=== PATIENT | female | born 1970 | race Caucasian/White ===

== ENCOUNTER → 2016-09-10 | Outpatient (CLI) | payer OTHER | LOC: OD 16:11 | PROVIDERS: ATTEND Internal Medicine | DX: M17.11 Unilateral primary osteoarthritis, right knee (principal) ==

== ENCOUNTER → 2016-09-24 | Day surgery (SDC) | payer OTHER | LOC: RAD 12:18 | PROVIDERS: ATTEND Physician Assistant | PROC: BP09ZZZ Plain Radiography of Left Shoulder (ICD-10-PCS; principal; 2016-09-24) | DX: S43.432A Superior glenoid labrum lesion of left shoulder, initial encounter (principal); X58.XXXA Exposure to other specified factors, initial encounter | CPT/HCPCS: 73222; 73040; 77002; A9576 ==

== ENCOUNTER 2016-12-04 05:44 | Emergency (ER) | payer OTHER ==
[2016-12-04] MEDS ORDERED: NORMAL SALINE 1000 ML 1,000 ML IV ONE (06:57)
[2016-12-04] MEDS ORDERED: CLINDAMYCIN 600 MG/D5W RTU 50 ML IV ONE (06:58)
[2016-12-04 07:56] LABS: ABSOLUTE BASOPHILS # (AUTO) 0.1 10^3/uL (0.0-0.2); ABSOLUTE EOSINOPHILS # (AUTO) 0.1 10^3/uL (0.0-0.6); ABSOLUTE LYMPHOCYTES (AUTO) 1.7 10^3/uL (0.5-4.7); ABSOLUTE MONOCYTES (AUTO) 1.1 10^3/uL (0.1-1.4); ABSOLUTE NEUT (AUTO) 13.9 10^3/uL (1.7-8.2); BASOPHILS % (AUTO) 0.3 % (0-2); EOSINOPHILS % (AUTO) 0.8 % (0-6); HEMATOCRIT 30.7 % (36.0-47.0); HEMOGLOBIN 9.6 g/dL (12.0-15.5); HGB HCT DIFFERENCE -1.9; MEAN CORPUSCULAR HEMOGLOBIN 23.3 pg (27.0-33.4); MEAN CORPUSCULAR HGB CONC 31.1 g/dL (32.0-36.0); MEAN CORPUSCULAR VOLUME 75 fl (80-97); MONOCYTES % (AUTO) 6.4 % (3-13); RED CELL DISTRIBUTION WIDTH 18.2 % (11.5-14.0); SEGMENTED NEUTROPHILS % (AUTO) 82.5 % (42-78); WHITE BLOOD COUNT 16.9 10^3/uL (4.0-10.5)
[2016-12-04 08:15] LABS: ALANINE AMINOTRANSFERASE 24 U/L (9-52); ALBUMIN 4.4 g/dL (3.5-5.0); ALKALINE PHOSPHATASE 110 U/L (38-126); ANION GAP 12 (5-19); ASPARTATE AMINO TRANSFERASE 23 U/L (14-36); BILIRUBIN,DIRECT 0.4 mg/dL (0.0-0.4); BILIRUBIN,TOTAL 0.6 mg/dL (0.2-1.3); BLOOD UREA NITROGEN 8 mg/dL (7-20); CALCIUM 9.5 mg/dL (8.4-10.2); CARBON DIOXIDE 24 mmol/L (22-30); CHLORIDE 104 mmol/L (98-107); CREATININE RESULT 0.69 mg/dL (0.52-1.25); GLUCOSE 132 mg/dL (75-110); POTASSIUM 3.8 mmol/L (3.6-5.0); SODIUM 140.1 mmol/L (137-145); TOTAL PROTEIN 8.3 g/dL (6.3-8.2)
[2016-12-04 08:17] LABS: ALCOHOL < 10 mg/dL (NONE DETECTED)
[2016-12-04 08:47] LABS: APPEARANCE,URINE CLEAR; BILIRUBIN,URINE NEGATIVE (NEGATIVE); GLUCOSE, URINE NEGATIVE (NEGATIVE); KETONES,URINE NEGATIVE (NEGATIVE); LEUKOCYTE ESTERASE,URINE NEGATIVE (NEGATIVE); NITRITE,URINE NEGATIVE (NEGATIVE); PROTEIN,URINE NEGATIVE (NEGATIVE); RBC,URINE 0-1 /HPF; URINE SPECIFIC GRAVITY 1.007; UROBILINOGEN,URINE NEGATIVE mg/dL (<2.0); WBC,URINE NONE SEEN /HPF
[2016-12-04 08:55] LABS: URINE BARBITURATES SCREEN NEGATIVE; URINE METHADONE SCREEN NEGATIVE; URINE OPIATES LOW NEGATIVE; URINE PHENCYCLIDINE SCREEN NEGATIVE
[2016-12-04 09:14] LABS: CHLAM PCR NOT DETECTED (NOT DETECT)
[2016-12-04] MEDS ORDERED: ACETAMINOPHEN 325 MG TABLET PO ONE (09:17)
--- NOTE | 2016-12-04 09:47 | ER Document Report ---
ED General - General Chief Complaint: Wound Infection Stated Complaint: LOWER ABDOMINAL ABSCESS/PSYCH EVAL Time Seen by Provider: 12/04/16 06:38 TRAVEL OUTSIDE OF THE [place] IN LAST 30 DAYS: No - HPI Patient complains to provider of: Wound infection Notes: Patient is coming in for evaluation of wound infection. Patient states recently seen by functional manager and started on Bactrim for cellulitis or wound infection states a culture was done that time patient states she is taking 1 dose of Bactrim however came in for further evaluation. Patient also is requesting psychiatric evaluation. Patient states that she is having periods where she is blacking out not remembering events however her girlfriend at bedside states that the patient has something black going in and out of her vagina states that a few months ago the patient advised to multiple people that she cannot see into the house and that she makes recordings of the people at nighttime having "angry sex" patient states that these recordings are on the phone. Patient states that these people cannot be seen nor any obviously seen. Patient is requesting of vaginal examination. - Related Data Allergies/Adverse Reactions: No Known Allergies Allergy (Unverified 12/04/16 05:52) Past Medical History - Social History Smoking Status: Unknown if Ever Smoked Family History: Reviewed & Not Pertinent Patient has suicidal ideation: No Patient has homicidal ideation: No Renal/ Medical History: Denies: Hx Peritoneal Dialysis Surgical Hx: Negative Review of Systems - Review of Systems Constitutional: No symptoms reported EENT: No symptoms reported Cardiovascular: No symptoms reported Respiratory: No symptoms reported Gastrointestinal: No symptoms reported Genitourinary: No symptoms reported Female Genitourinary: No symptoms reported Musculoskeletal: No symptoms reported Skin: Other - Cellulitis Hematologic/Lymphatic: No symptoms reported Neurological/Psychological: Other - Hallucinations Physical Exam - Vital signs Vitals: Temp Pulse Resp BP Pulse Ox 98.4 F 116 H 16 145/88 H 99 12/04/16 05:46 12/04/16 05:46 12/04/16 05:46 12/04/16 05:46 12/04/16 05:46 Interpretation: Normal - General General appearance: Appears well, Alert - HEENT Head: Normocephalic, Atraumatic Eyes: Normal Pupils: PERRL - Respiratory Respiratory status: No respiratory distress Chest status: Nontender Breath sounds: Normal Chest palpation: Normal - Cardiovascular Rhythm: Regular Heart sounds: Normal auscultation Murmur: No - Abdominal Inspection: No: Normal - Patient has some excoriations below the buttock region and at the supraclavicular region multiple signs of folliculitis and some induration. Bedside ultrasound was performed showing no signs of abscess formation. Distension: No distension Bowel sounds: Normal Tenderness: Nontender Organomegaly: No organomegaly - Genitourinary External exam: Normal Speculum exam: Normal Vaginal bleeding: None Bimanuel exam: Normal - Back Back: Normal, Nontender - Extremities General upper extremity: Normal inspection, Nontender, Normal color, Normal ROM , Normal temperature General lower extremity: Normal inspection, Nontender, Normal color, Normal ROM , Normal temperature, Normal weight bearing. No: Adriano's sign - Neurological Neuro grossly intact: Yes Cognition: Normal Orientation: AAOx4 Barrett Coma Scale Eye Opening: Spontaneous Gonzales Coma Scale Verbal: Oriented Barrett Coma Scale Motor: Obeys Commands Barrett Coma Scale Total: 15 Speech: Normal Motor strength normal: LUE, RUE, LLE, RLE Sensory: Normal - Psychological Associated symptoms: Normal affect, Normal mood - Skin Skin Temperature: Warm Skin Moisture: Dry Skin Color: Normal Course - Re-evaluation Re-evalutation: 12/04/16 14:37 Patient was given a dose of IV clindamycin while she was here. Pelvic exam did not reveal any abnormal pathology. Due to the hallucinations the patient was also seen by our psychiatric team at this time patient does not meet any IVC criteria. Upon discharge patient was still on close the patient's partner was videotaping her vagina stating that she wanted to capture whatever is going in and out of her vagina. Patient and partner seem to be medically stable harm to themselves or anyone else patient will be discharged home resources given for both medical and psychiatric care - Vital Signs Vital signs: Temp Pulse Resp BP Pulse Ox 98.7 F 96 18 111/71 99 12/04/16 10:08 12/04/16 10:08 12/04/16 10:08 12/04/16 10:08 12/04/16 10:08 - Laboratory Result Diagrams: 12/04/16 07:43 12/04/16 07:43 Laboratory results interpreted by me: 12/04/16 12/04/16 12/04/16 07:07 07:43 07:43 WBC 16.9 H Hgb 9.6 L Hct 30.7 L MCV 75 L MCH 23.3 L MCHC 31.1 L RDW 18.2 H Seg Neutrophils % 82.5 H Lymphocytes % 10.0 L Absolute Neutrophils 13.9 H Glucose 132 H Total Protein 8.3 H Urine Blood SMALL H Salicylates < 1.0 L Acetaminophen < 10 L Discharge - Discharge Clinical Impression: Hallucinations Cellulitis Qualifiers: Site of cellulitis: other site Qualified Code(s): L03.818 - Cellulitis of other sites Condition: Good Disposition: HOME, SELF-CARE Instructions: Antibiotic Ointment Protection ([facility]), Cellulitis ([facility]), Hallucinations ([facility]) Additional Instructions: I will highly recommend to adjust the medications that you are taking discussed the medications that you are taking with your primary care physician. Follow-up with the resources given to you by mental health team. Please continue the Bactrim that your doctor as previously prescribed you. Your examination today does not reveal any abscess formation underneath the underlying cellulitis however an abscess may form later. Please keep an eye on the infection. I will highly recommend following up with your primary care physician in 3 days. Return to the ER for any other concerns. SHe may apply the cream provided to the infected areas to also aid in healing Prescriptions: Mupirocin [Bactroban 2% Ointment 22 gm] 1 applic TP TID #1 tube Referrals: SHIRIN BARRETO MD [Primary Care Provider] - Follow up in 3-5 days
[2016-12-04 10:09] VITALS: BP 111/71
--- NOTE | 2016-12-04 11:02 | EKG REPORT ---
SEVERITY:- BORDERLINE ECG - SINUS RHYTHM BORDERLINE LEFT AXIS DEVIATION BORDERLINE T ABNORMALITIES, ANTERIOR LEADS : Confirmed by: Maryana Hoskins MD 04-Dec-2016 11:00:56
--- NOTE | 2016-12-04 16:37 | PSYCHOLOGICAL NOTE ---
Psych Note - Psych Note Psych Note: Patient is coming in for evaluation of wound infection. Patient states recently seen by manager regional sales and started on Bactrim for cellulitis or wound infection states a culture was done that time patient states she is taking 1 dose of Bactrim however came in for further evaluation. Patient also is requesting psychiatric evaluation. Patient states that she is having periods where she is blacking out not remembering events however her girlfriend at bedside states that the patient has something black going in and out of her vagina states that a few months ago the patient advised to multiple people that she cannot see into the house and that she makes recordings of the people at nighttime having "angry sex" patient states that these recordings are on the phone. Patient states that these people cannot be seen nor any obviously seen. Patient is accompanied by her . Patient states that she has no history of mental health. Patient's states "one day she was just different." She states that it was November 14 this occurred. They continued to disclose the patient takes Percocet because on November 10 she had shoulder surgery. They continued disclosed that she takes Flexeril Singulair and a heartburn medication may get from [employer]. They continued disclosed that the voices are heard in the home and is not just heard by the patient. Patient's also hears these voices. Patient's played audio recording to clinician of these voices. Voices are clearly heard talking in Czech and then voices that are identified by the patient and patient's from the "people not there" are in Latvian. He disclosed the patient has episodes where her eyes glazed over she tilts her head and starts communicating with these voices. During these episodes the patient has no memory of what occurred. Patient states that this is been happening the last week or so because it was brought to her attention by her spouse. Both patient and spouse state they have never seen anybody in the home. Patient's bowels begin to discuss concern of seeing shadow people in addition to an animal like object coming out of the patient's vagina. Patient's spouse is observed attempting to video record this manifestation as approved. Both patient and patient's spouse stated they feel safe at home. Patient is alert and orientated to person place and time. It is unclear patient is orientated to circumstance. Mood is dysphoric with tearful affect. Patient denies suicidal and homicidal ideation. Patient discusses auditory hallucinations of multiple people talking in the home in addition to visual hallucinations of shadows people and animals like manifestation that goes into the patient's body. Thought process is illogical however organized and linear. Conversational speech was within normal rate tone rate tone is noted both patient speak Latvian as a second language. Intellectual abilities appear to be average range. Attention and concentration are poor. Insight, judgment, impulse control are poor. 298.9 (F29) Unspecified Schizophrenia spectrum and other psychotic Disorder. Impression\\plan: Patient is psychiatrically clear for discharge. Patient does not meet IVC criteria per [place] GS 122C. Patient denies suicidal homicidal ideations. Currently is unclear what is causing the patient to hear voices in the home. Patient is recommended to have local [employer] go underneath the patient' s double wide trailer to ensure there are no one living under the home. It is also recommended the patient discontinue the use of her medication she obtained from [employer] and seek outpatient services for mental health. Patient's spouse disclosed that they are going to get a placement specialist to come to the home and have the home blessed. She also disclosed that she will do some cleansing that is congruent with culture. Patient is not currently a danger to herself and others. Dr. Stephenson was consulted and the care and management of this patient; attending physician is in agreement with recommendations and disposition.
== END 2016-12-04 10:09 | disposition home or self-care (01) ==
LOC: ER 05:44
DX: L03.818 Cellulitis of other sites (principal); R44.2 Other hallucinations; R41.82 Altered mental status, unspecified
CPT/HCPCS: 93005; 99285; 96365; 36415; 87210; 80307 ×4; 84703; 85025; 86592; 80053; 81001; 87491; 87591; 93010; J7030

== ENCOUNTER 2016-12-04 20:39 | Emergency (ER) | payer OTHER ==
[2016-12-04 20:54] VITALS: BP 129/80
== END 2016-12-05 01:05 | disposition left against medical advice (07) ==
LOC: ER 20:39
DX: Z53.9 Procedure and treatment not carried out, unspecified reason (principal); R10.2 Pelvic and perineal pain

== ENCOUNTER → 2017-02-18 | Outpatient (CLI) | payer OTHER | LOC: LAB 10:51 | PROVIDERS: ATTEND Physician Assistant | DX: Z86.14 Personal history of Methicillin resistant Staphylococcus aureus infection (principal) | CPT/HCPCS: 87070 ==